=== PATIENT | male | born 1975 | race Hispanic/Latino ===

== ENCOUNTER 2020-08-21 12:08 | Emergency (ER) | payer OTHER ==
[2020-08-21] MEDS ORDERED: Boostrix 0.5 ML (Tdap) VIAL ONE (13:28)
[2020-08-21] MEDS ORDERED: Ibuprofen 800 MG TAB ONE (13:28)
[2020-08-21] MEDS ORDERED: Lidocaine 1.5%/Epinephrine 1:200,000 5 ML AMPUL IJ SCH (14:15)
[2020-08-21] MEDS ORDERED: Bacitracin 1 PK ONE (15:43)
== END 2020-08-21 15:54 | disposition home or self-care (01) ==
LOC: ERS 12:08
DX: S51.852A Open bite of left forearm, initial encounter (principal); S51.851A Open bite of right forearm, initial encounter; W54.0XXA Bitten by dog, initial encounter
CPT/HCPCS: 12002; 12032; 90471; 90715; J3490

== ENCOUNTER 2020-09-23 12:46 | Inpatient (IN) | payer SELFPAY ==
[~2020-09-23 12:46] MED LIST: Iopamidol-370 76% 500 ML 1 ML ONE; Magnevist 469MG/ML 20 ML VIAL ONE; Succinylcholine 200 MG/10 ml SYRINGE FS ONE
[2020-09-23 13:10] LABS: #Lymphocytes 1.1 thou/uL (1.20-3.40); #Monocytes 0.7 thou/uL (0.11-0.59); #Neutrophils 16.4 thou/uL (1.40-6.50); %Basophils 0.2 % (0.0-1.0); %Eosinophils 0.3 % (0.0-10.0); %Lymphocytes 5.8 % (21.0-51.0); %Monocytes 3.6 % (0.0-10.0); %Neutrophils 90.3 % (42.0-75.0); Hemoglobin 14.8 g/dL (14.0-18.0); Mean Corpuscular HGB CONC 33.9 g/dL (32.0-36.0); Mean Corpuscular Hemoglobin 29.8 pg (27.0-31.0); Mean Platelet Volume 7.6 fL (7.4-10.4); Platelet Count 477 thou/uL (130-400); RBC Distribution Width 11.9 % (11.5-14.5); Red Blood Cell (RBC) Count 4.96 mill/uL (4.70-6.10); White Blood Cell (WBC) Count 18.2 thou/uL (4.8-10.8)
[2020-09-23] MEDS ORDERED: cefTRIAXone\\ROCEPHIN 2 GM VIAL ONE (13:29)
[2020-09-23] MEDS ORDERED: Magnesium 2 GM/50 ML BAG (IN WATER) ONE (13:29)
[2020-09-23] MEDS ORDERED: Azithromycin 500 MG VIAL ONE (13:29)
[2020-09-23] MEDS ORDERED: Dexamethasone 10 MG/ML VIAL ONE (13:29)
[2020-09-23 13:30] LABS: ALT (SGPT) 68 U/L (8-55); AST (SGOT) 37 U/L (5-34); Albumin 3.4 g/dL (3.5-5.0); Alkaline Phosphatase 174 U/L (40-110); Anion Gap 16 mmol/L (10-20); BUN (Urea Nitrogen) 14 mg/dL (8.9-20.6); Bilirubin, Total 0.8 mg/dL (0.2-1.2); Calc. Creatinine Clearance 0 mL/min (70-130); Calcium 8.5 mg/dL (7.8-10.44); Carbon Dioxide 22 mmol/L (22-29); Chloride 105 mmol/L (98-107); Globulin 3.8 g/dL (2.4-3.5); Glucose 160 mg/dL (70-105); Lipase 15 U/L (8-78); Potassium 3.3 mmol/L (3.5-5.1); Protein, Total 7.2 g/dL (6.0-8.3); Sodium 140 mmol/L (136-145)
[2020-09-23 13:52] LABS: CKMB 2.1 ng/mL (0-6.6)
[2020-09-23 14:16] LABS: SARS-CoV-2 NAA Rapid Test DETECTED (NotDetected)
[2020-09-23 16:28] LABS: Lactic Acid 1.3 mmol/L (0.5-2.2)
[2020-09-23 17:07] LABS: INR-International Normal Ratio 1.3; PTT 26.2 sec (22.9-36.1); Prothrombin Time 16.4 sec (12.0-14.7)
[2020-09-23] MEDS ORDERED: Docusate 100 MG CAP PO PRN (17:34)
[2020-09-23] MEDS ORDERED: Aspirin 325 MG TAB ONE (17:35)
[2020-09-23 18:37] LABS: Troponin I 0.261 ng/mL (< 0.028)
[2020-09-23 20:12] LABS: Bilirubin Negative (Negative); Blood, Urine Negative (Negative); Clarity Clear (Clear); Glucose, Urine (Dipstick) 30 mg/dL (Negative); Ketone, Urine Negative (Negative); Leukocyte Negative Leu/uL (Negative); Mucous/LPF 1+ LPF (<2+); Nitrite Negative (Negative); Protein, Urine (Dipstick) 30 mg/dL (Neg-Trace); RBC/HPF 0-3 HPF (0-3); Specific Gravity, Urine 1.047 (1.002-1.036); Squamous Epithelial None Seen HPF (0-3); WBC/HPF 0-3 HPF (0-3)
[2020-09-23 20:25] LABS: Bacteria/HPF 2+ HPF (None Seen)
[2020-09-23 21:56] LABS: Troponin I 0.228 ng/mL (< 0.028)
[2020-09-24] MEDS: Labetalol HCl 100 MG/20 ML VIAL SLOW IVP PRN ×3 (01:38→19:08)
[2020-09-24] MEDS: Sodium Chloride 0.9% 1,000 ML IV SCH ×3 (01:38→20:47)
[2020-09-24] MEDS ORDERED: REMDESIVIR (EUA) 200 MG in Sodium Chloride 0.9% 250 ML 210 ML IV SCH (02:00)
[2020-09-24] MEDS: Enoxaparin Sodium 40 MG/0.4 ML SYRINGE SC SCH ×3 (02:19→20:46)
[2020-09-24 03:43] LABS: #Monocytes 0.7 thou/uL (0.11-0.59); #Neutrophils 13.2 thou/uL (1.40-6.50); %Basophils 0.1 % (0.0-1.0); %Eosinophils 0.2 % (0.0-10.0); %Lymphocytes 6.6 % (21.0-51.0); %Monocytes 4.4 % (0.0-10.0); %Neutrophils 88.8 % (42.0-75.0); Mean Corpuscular HGB CONC 33.1 g/dL (32.0-36.0); Mean Corpuscular Hemoglobin 29.5 pg (27.0-31.0); Mean Corpuscular Volume 89.3 fL (78.0-98.0); Platelet Count 394 thou/uL (130-400); Red Blood Cell (RBC) Count 4.41 mill/uL (4.70-6.10); White Blood Cell (WBC) Count 14.9 thou/uL (4.8-10.8)
[2020-09-24 04:05] LABS: Anion Gap 17 mmol/L (10-20); BUN (Urea Nitrogen) 18 mg/dL (8.9-20.6); Calc. Creatinine Clearance 144 mL/min (70-130); Carbon Dioxide 18 mmol/L (22-29); Cardiac Risk 8.1 (Less than 4.5); Chloride 110 mmol/L (98-107); Cholesterol 154 mg/dl (< 200 Desired); Glucose 164 mg/dL (70-105); HDL Cholesterol 19 mg/dL (>60 Neg Risk); LDL Cholesterol, Calculated 107 mg/dL; Potassium 3.8 mmol/L (3.5-5.1); Sodium 141 mmol/L (136-145); Triglycerides 138 mg/dL (Less than 150)
[2020-09-24 04:10] LABS: ALT (SGPT) 49 U/L (8-55); AST (SGOT) 29 U/L (5-34); Alkaline Phosphatase 137 U/L (40-110); Bilirubin, Direct 0.3 mg/dL (0.1-0.3); Bilirubin, Total 0.5 mg/dL (0.2-1.2); CRP (Inflammatory) 23.05 mg/dL (= or < 0.5); Protein, Total 6.2 g/dL (6.0-8.3)
[2020-09-24] MEDS: hydrALAZINE 20 MG/ML VIAL SLOW IVP PRN (06:07)
[2020-09-24] MEDS ORDERED: Pantoprazole 40 MG GRANULES PACKET PO SCH (09:00)
[2020-09-24] MEDS: Zinc Sulfate 220 MG CAP PO SCH (10:03)
[2020-09-24] MEDS: Ascorbic Acid 500 mg Chewable Tablet PO SCH (10:03)
[2020-09-24] MEDS: Cholecalciferol (Vitamin D3) 400 UNITS TAB PO SCH (10:03)
[2020-09-24] MEDS: cefTRIAXone\\ROCEPHIN 1 GM in Sodium Chloride 0.9% 100 ML IVPB SCH (15:52)
[2020-09-24] MEDS: Dexamethasone 10 MG in Sodium Chloride 0.9% 50 ML IVPB SCH (17:38)
[2020-09-24] MEDS: Azithromycin 500 MG in Sodium Chloride 0.9% 250 ML 250 ML IVPB SCH (17:38)
[2020-09-24] MEDS: Acetaminophen 325 MG TAB PO PRN (19:27)
[2020-09-24] MEDS: Atorvastatin Calcium 40 MG TAB PO SCH (20:47)
[2020-09-24] MEDS ORDERED: Lorazepam 2 MG/ML VIAL SLOW IVP SCH (21:45)
[2020-09-24 23:07] LABS: Actual Bicarbonate (HCO3a) 16.7 mEq/L (22-28); Base Excess (BEa) -6.4 mEq/L (-2.0 to +3.0); CO2 Tension 26.9 mmHg (35.0-45.0); Calcium, Ionized (arterial) 1.16 mmol/L (1.12-1.30); Carboxyhemoglobin (COHb) 0.4 gm% (0.0-3.0); Hemoglobin (Hb) 12.7 g/dL (14.0-18.0); O2 Tension (PaO2), arterial 73.6 mmHg (80.0-100.0); pH, Arterial 7.41 (7.35-7.45)
[2020-09-24 23:09] LABS: Puncture Site LRA
[2020-09-24 23:10] LABS: ALV-art Gradient 484.565 mmHg (0-20)
[2020-09-25] MEDS: hydrALAZINE 20 MG/ML VIAL SLOW IVP PRN (00:33)
[2020-09-25] MEDS: REMDESIVIR (EUA) 100 MG in Sodium Chloride 0.9% 250 ML 230 ML IV SCH (03:05)
[2020-09-25 04:02] LABS: Band 1 % (5-11); Hemoglobin 12.4 g/dL (14.0-18.0); Hypochromia SLIGHT = 6-15 cells (100X) (0-5/hpf); Lymphocytes 5 % (21-51); MDiff Complete? YES; Mean Corpuscular HGB CONC 33.6 g/dL (32.0-36.0); Mean Corpuscular Hemoglobin 29.9 pg (27.0-31.0); Mean Corpuscular Volume 88.9 fL (78.0-98.0); Monocytes 5 % (0-10); Neutrophil 89 % (42-75); Platelet Count 334 thou/uL (130-400); Platelet Morphology Comment Appears Adequate; Red Blood Cell (RBC) Count 4.14 mill/uL (4.70-6.10); White Blood Cell (WBC) Count 19.9 thou/uL (4.8-10.8)
[2020-09-25 08:24] LABS: Anion Gap 15 mmol/L (10-20); BUN (Urea Nitrogen) 20 mg/dL (8.9-20.6); Calc. Creatinine Clearance 167 mL/min (70-130); Calcium 7.8 mg/dL (7.8-10.44); Carbon Dioxide 16 mmol/L (22-29); Chloride 111 mmol/L (98-107); Glucose 141 mg/dL (70-105); Potassium 3.8 mmol/L (3.5-5.1); Sodium 138 mmol/L (136-145)
[2020-09-25] MEDS ORDERED: Diazepam 5 MG TAB PO PRN (08:29)
[2020-09-25] MEDS ORDERED: Diazepam 5 MG TAB PO SCH (08:30)
[2020-09-25] MEDS ORDERED: Thiamine HCl 200 MG/2 ML VIAL IM SCH (08:30)
[2020-09-25 08:45] LABS: Syphilis Antibody Nonreactive (Nonreactive); Syphilis Antibody Index 0.04 S/CO (<1.00 Non-Reactive)
[2020-09-25] MEDS: Dexamethasone 10 MG in Sodium Chloride 0.9% 50 ML IVPB SCH (10:00)
[2020-09-25] MEDS: Sodium Chloride 0.9% 1,000 ML IV SCH (10:11)
[2020-09-25] MEDS: Cholecalciferol (Vitamin D3) 400 UNITS TAB PO SCH (10:23)
[2020-09-25] MEDS: Ascorbic Acid 500 mg Chewable Tablet PO SCH (10:23)
[2020-09-25] MEDS: Zinc Sulfate 220 MG CAP PO SCH (10:24)
[2020-09-25] MEDS: Multivitamin W/ Minerals 1 TAB PO SCH (10:24)
[2020-09-25] MEDS: Folic Acid 1 MG TAB PO SCH (10:24)
[2020-09-25] MEDS: Enoxaparin Sodium 40 MG/0.4 ML SYRINGE SC SCH ×2 (10:25→20:31)
[2020-09-25] MEDS ORDERED: Sodium Bicarb 50 MEQ/50 ML Abboject 8.4% SYRINGE ONE (10:54)
[2020-09-25] MEDS ORDERED: Calcium Chloride 1 GM/10 ML Abboject SYRINGE ONE (10:54)
[2020-09-25] MEDS ORDERED: EPINEPHrine 1 MG/10 ML Abboject SYRINGE ONE (10:54)
[2020-09-25] MEDS ORDERED: Sodium Chloride 0.65% Nasal 44 ML BOT EA NARE PRN (10:59)
[2020-09-25] MEDS: cefTRIAXone\\ROCEPHIN 1 GM in Sodium Chloride 0.9% 100 ML IVPB SCH (12:01)
[2020-09-25] MEDS: Sodium Chloride 0.65% Nasal 44 ML BOT EA NARE SCH ×3 (12:02→20:32)
[2020-09-25] MEDS ORDERED: Lorazepam 2 MG/ML VIAL ONE (12:03)
[2020-09-25 12:31] LABS: Sodium 141 mmol/L (136-145)
[2020-09-25] MEDS ORDERED: Lorazepam 2 MG/ML VIAL SLOW IVP PRN (12:42)
[2020-09-25] MEDS ORDERED: Vecuronium 10 MG VIAL ONE ×2 (14:44→15:38)
[2020-09-25] MEDS ORDERED: Propofol 1,000 MG/100 ML VIAL IV ONE (14:44)
[2020-09-25] MEDS ORDERED: PROPOFOL 20 ML ONE (14:44)
[2020-09-25 15:27] LABS: Actual Bicarbonate (HCO3a) 19.3 mEq/L (22-28); Base Excess (BEa) -9.8 mEq/L (-2.0 to +3.0); CO2 Tension 55.6 mmHg (35.0-45.0); Calcium, Ionized (arterial) 1.36 mmol/L (1.12-1.30); Carboxyhemoglobin (COHb) 0.4 gm% (0.0-3.0); Hemoglobin (Hb) 13.4 g/dL (14.0-18.0); O2 Tension (PaO2), arterial 72.4 mmHg (80.0-100.0)
[2020-09-25] MEDS ORDERED: Fentanyl CADD 100 ML ONE (15:29)
[2020-09-25 15:30] LABS: pH, Arterial 7.16 (7.35-7.45)
[2020-09-25] MEDS ORDERED: Ventilator Sedation Protocol 1 EACH FS SCH (15:30)
[2020-09-25 15:31] LABS: Puncture Site RRA
[2020-09-25] MEDS: Azithromycin 500 MG in Sodium Chloride 0.9% 250 ML 250 ML IVPB SCH (15:32)
[2020-09-25] MEDS ORDERED: Electrolyte Replacement Protocol FS SCH (15:44)
[2020-09-25] MEDS ORDERED: DISCONTINUE PREVIOUS NARCOTIC PAIN MEDICATIONS AND BENZODIAZEPINES FS SCH (15:45)
[2020-09-25] MEDS ORDERED: Propofol BOLUS 1,000 MG/100 ML VIAL IV PRN (15:45)
[2020-09-25] MEDS ORDERED: Fentanyl BOLUS 250 ML IVPB PRN (15:45)
[2020-09-25 18:52] LABS: Bacteria/HPF None Seen HPF (None Seen); Bilirubin Negative (Negative); Blood, Urine 3+ (Negative); Clarity Turbid (Clear); Glucose, Urine (Dipstick) 100 mg/dL (Negative); Ketone, Urine Negative (Negative); Leukocyte Negative Leu/uL (Negative); Nitrite Negative (Negative); Protein, Urine (Dipstick) 300 mg/dL (Neg-Trace); RBC/HPF Greater than 50 HPF (0-3); Specific Gravity, Urine 1.032 (1.002-1.036); Squamous Epithelial 0-3 HPF (0-3)
[2020-09-25 18:59] LABS: Sperm/HPF 1+ HPF (None Seen)
[2020-09-25 19:00] LABS: Amphetamine Not Detected (NotDetected); Barbiturates Screen Not Detected (NotDetected); Benzodiazepine Screen Detected (NotDetected); Cocaine Metabolite Screen Not Detected (NotDetected); Medtox Control Line Valid? VALID (VALID); Medtox Reader # READER 1; Methadone Not Detected (NotDetected); Methamphetamine Not Detected (NotDetected); Opiate Screen Not Detected (NotDetected); Oxycodone Screen Not Detected (NotDetected); Phencyclidine (PCP) Not Detected (NotDetected); THC/Cannabinoid Screen Not Detected (NotDetected); Tricyclic Screen Not Detected (NotDetected); Urine Culture Reflex Yes Yes
[2020-09-25 19:08] LABS: Sodium 138 mmol/L (136-145)
[2020-09-25] MEDS: Atorvastatin Calcium 40 MG TAB PO SCH (20:31)
[2020-09-25] MEDS: Colchicine 0.6 MG TAB PO SCH (20:31)
[2020-09-25] MEDS ORDERED: Sterile Water 10 ML ONE (20:47)
[2020-09-25] MEDS: Vecuronium 10 MG VIAL IVP PRN ×2 (20:56→22:08)
[2020-09-25] MEDS: Lorazepam 2 MG/ML VIAL SLOW IVP PRN (22:08)
[2020-09-26] MEDS: Vecuronium 10 MG VIAL IVP PRN ×11 (00:13→21:00)
[2020-09-26 00:27] LABS: Sodium 140 mmol/L (136-145)
[2020-09-26] MEDS: Sodium Chloride 0.9% 1,000 ML IV SCH ×2 (02:56→16:56)
[2020-09-26 03:42] LABS: #Lymphocytes 0.9 thou/uL (1.20-3.40); #Monocytes 0.7 thou/uL (0.11-0.59); %Basophils 0.2 % (0.0-1.0); %Eosinophils 0.1 % (0.0-10.0); %Lymphocytes 5.8 % (21.0-51.0); %Monocytes 4.5 % (0.0-10.0); %Neutrophils 89.5 % (42.0-75.0); Hemoglobin 11.1 g/dL (14.0-18.0); Mean Corpuscular HGB CONC 32.6 g/dL (32.0-36.0); Mean Corpuscular Hemoglobin 29.7 pg (27.0-31.0); Mean Corpuscular Volume 91.1 fL (78.0-98.0); Mean Platelet Volume 8.5 fL (7.4-10.4); Platelet Count 260 thou/uL (130-400); RBC Distribution Width 12.2 % (11.5-14.5); Red Blood Cell (RBC) Count 3.72 mill/uL (4.70-6.10); White Blood Cell (WBC) Count 15.7 thou/uL (4.8-10.8)
[2020-09-26] MEDS: REMDESIVIR (EUA) 100 MG in Sodium Chloride 0.9% 250 ML 230 ML IV SCH (03:43)
[2020-09-26] MEDS ORDERED: Diazepam 5 MG TAB PO PRN (04:00)
[2020-09-26 04:03] LABS: Anion Gap 11 mmol/L (10-20); BUN (Urea Nitrogen) 34 mg/dL (8.9-20.6); CRP (Inflammatory) 21.47 mg/dL (= or < 0.5); Calc. Creatinine Clearance 141 mL/min (70-130); Calcium 7.9 mg/dL (7.8-10.44); Carbon Dioxide 22 mmol/L (22-29); Chloride 110 mmol/L (98-107); Glucose 179 mg/dL (70-105); Potassium 5.3 mmol/L (3.5-5.1); Sodium 138 mmol/L (136-145)
[2020-09-26] MEDS ORDERED: Fentanyl CADD 100 ML ONE ×2 (06:16→19:24)
[2020-09-26] MEDS: Fentanyl CADD 100 ML IV SCH ×2 (06:19→19:32)
[2020-09-26 07:22] LABS: Actual Bicarbonate (HCO3a) 22.4 mEq/L (22-28); Base Excess (BEa) -3.5 mEq/L (-2.0 to +3.0); CO2 Tension 43.7 mmHg (35.0-45.0); Carboxyhemoglobin (COHb) 0.2 gm% (0.0-3.0); O2 Tension (PaO2), arterial 64.8 mmHg (80.0-100.0); Potassium - ABG Lab 4.73 mmol/L (3.70-5.30); pH, Arterial 7.33 (7.35-7.45)
[2020-09-26 07:23] LABS: Sodium 141 mmol/L (136-145)
[2020-09-26 07:36] LABS: Puncture Site RRA
[2020-09-26 07:37] LABS: ALV-art Gradient 308.375 mmHg (0-20)
[2020-09-26] MEDS: Propofol 1,000 MG/100 ML VIAL IV PRN (08:40)
[2020-09-26] MEDS: Thiamine 100 MG TAB PO SCH (08:41)
[2020-09-26] MEDS: Folic Acid 1 MG TAB PO SCH (08:41)
[2020-09-26] MEDS: Magnesium Oxide 400 MG TAB PO SCH (08:41)
[2020-09-26] MEDS: Ascorbic Acid 500 mg Chewable Tablet PO SCH (08:42)
[2020-09-26] MEDS: Multivitamin W/ Minerals 1 TAB PO SCH (08:42)
[2020-09-26] MEDS: Zinc Sulfate 220 MG CAP PO SCH (08:42)
[2020-09-26] MEDS: Cholecalciferol (Vitamin D3) 400 UNITS TAB PO SCH (08:53)
[2020-09-26] MEDS ORDERED: Enoxaparin Sodium 40 MG/0.4 ML SYRINGE ONE (08:54)
[2020-09-26] MEDS: Colchicine 0.6 MG TAB PO SCH ×2 (08:55→21:00)
[2020-09-26] MEDS: Enoxaparin Sodium 40 MG/0.4 ML SYRINGE SC SCH ×2 (08:55→21:00)
[2020-09-26] MEDS: Sodium Chloride 0.65% Nasal 44 ML BOT EA NARE SCH ×4 (08:56→22:25)
[2020-09-26] MEDS: Pantoprazole 40 MG VIAL IVP SCH (08:56)
[2020-09-26] MEDS: Lorazepam 2 MG/ML VIAL SLOW IVP PRN ×4 (11:21→21:01)
[2020-09-26] MEDS: Labetalol HCl 100 MG/20 ML VIAL SLOW IVP PRN (11:35)
[2020-09-26] MEDS: Dexamethasone 10 MG in Sodium Chloride 0.9% 50 ML IVPB SCH (12:09)
[2020-09-26 12:57] LABS: Sodium 142 mmol/L (136-145)
[2020-09-26] MEDS: Azithromycin 500 MG in Sodium Chloride 0.9% 250 ML 250 ML IVPB SCH (14:28)
[2020-09-26] MEDS: cefTRIAXone\\ROCEPHIN 1 GM in Sodium Chloride 0.9% 100 ML IVPB SCH (14:28)
[2020-09-26] MEDS: Multivitamins, Adult 10 ML, Folic Acid 1 MG, Thiamine HCl 100 MG in Dextrose 5 %-0.45 %... IV SCH ×2 (14:31→19:13)
[2020-09-26 18:22] LABS: Sodium 142 mmol/L (136-145)
[2020-09-26] MEDS: Atorvastatin Calcium 40 MG TAB PO SCH (21:00)
[2020-09-27] MEDS: Lorazepam 2 MG/ML VIAL SLOW IVP PRN ×4 (00:04→20:44)
[2020-09-27] MEDS: Vecuronium 10 MG VIAL IVP PRN ×8 (00:04→20:24)
[2020-09-27] MEDS: REMDESIVIR (EUA) 100 MG in Sodium Chloride 0.9% 250 ML 230 ML IV SCH (02:36)
[2020-09-27] MEDS: Sodium Chloride 0.9% 1,000 ML IV SCH ×2 (02:42→15:08)
[2020-09-27 03:59] LABS: #Basophils 0.1 thou/uL (0.0-0.2); #Lymphocytes 0.7 thou/uL (1.20-3.40); #Monocytes 0.9 thou/uL (0.11-0.59); #Neutrophils 14.4 thou/uL (1.40-6.50); %Basophils 0.4 % (0.0-1.0); %Lymphocytes 4.5 % (21.0-51.0); %Monocytes 5.7 % (0.0-10.0); %Neutrophils 89.4 % (42.0-75.0); Hemoglobin 10.1 g/dL (14.0-18.0); Mean Corpuscular HGB CONC 31.7 g/dL (32.0-36.0); Mean Corpuscular Hemoglobin 29.2 pg (27.0-31.0); Mean Platelet Volume 9.2 fL (7.4-10.4); Platelet Count 246 thou/uL (130-400); RBC Distribution Width 12.4 % (11.5-14.5); Red Blood Cell (RBC) Count 3.47 mill/uL (4.70-6.10); White Blood Cell (WBC) Count 16.1 thou/uL (4.8-10.8)
[2020-09-27 04:18] LABS: Anion Gap 11 mmol/L (10-20); BUN (Urea Nitrogen) 31 mg/dL (8.9-20.6); Calc. Creatinine Clearance 141 mL/min (70-130); Calcium 7.3 mg/dL (7.8-10.44); Carbon Dioxide 24 mmol/L (22-29); Chloride 110 mmol/L (98-107); Glucose 234 mg/dL (70-105); Potassium 4.9 mmol/L (3.5-5.1); Sodium 140 mmol/L (136-145)
[2020-09-27 07:55] LABS: Actual Bicarbonate (HCO3a) 22.3 mEq/L (22-28); Base Excess (BEa) -1.1 mEq/L (-2.0 to +3.0); Calcium, Ionized (arterial) 1.14 mmol/L (1.12-1.30); Carboxyhemoglobin (COHb) 0.3 gm% (0.0-3.0); O2 Tension (PaO2), arterial 124.6 mmHg (80.0-100.0); Potassium - ABG Lab 4.72 mmol/L (3.70-5.30); pH, Arterial 7.45 (7.35-7.45)
[2020-09-27 07:58] LABS: Puncture Site RRA
[2020-09-27] MEDS: Magnesium Oxide 400 MG TAB PO SCH (08:11)
[2020-09-27] MEDS: Cholecalciferol (Vitamin D3) 400 UNITS TAB PO SCH (08:11)
[2020-09-27] MEDS: Ascorbic Acid 500 mg Chewable Tablet PO SCH (08:11)
[2020-09-27] MEDS: Multivitamin W/ Minerals 1 TAB PO SCH (08:11)
[2020-09-27] MEDS: Folic Acid 1 MG TAB PO SCH (08:11)
[2020-09-27] MEDS: Thiamine 100 MG TAB PO SCH (08:11)
[2020-09-27] MEDS: Zinc Sulfate 220 MG CAP PO SCH (08:11)
[2020-09-27] MEDS: Colchicine 0.6 MG TAB PO SCH ×2 (08:11→20:08)
[2020-09-27] MEDS: Pantoprazole 40 MG VIAL IVP SCH (08:12)
[2020-09-27] MEDS: Enoxaparin Sodium 40 MG/0.4 ML SYRINGE SC SCH ×2 (08:12→20:08)
[2020-09-27] MEDS: Dexamethasone 10 MG in Sodium Chloride 0.9% 50 ML IVPB SCH (08:29)
[2020-09-27] MEDS ORDERED: Fentanyl CADD 100 ML ONE ×2 (08:49→20:43)
[2020-09-27] MEDS: Fentanyl CADD 100 ML IV SCH ×2 (08:51→20:44)
[2020-09-27] MEDS: cefTRIAXone\\ROCEPHIN 1 GM in Sodium Chloride 0.9% 100 ML IVPB SCH (12:09)
[2020-09-27] MEDS: Azithromycin 500 MG in Sodium Chloride 0.9% 250 ML 250 ML IVPB SCH (13:03)
[2020-09-27] MEDS: Propofol 1,000 MG/100 ML VIAL IV PRN (15:13)
[2020-09-27] MEDS: Multivitamins, Adult 10 ML, Folic Acid 1 MG, Thiamine HCl 100 MG in Dextrose 5 %-0.45 %... IV SCH (16:37)
[2020-09-27] MEDS: Atorvastatin Calcium 40 MG TAB PO SCH (20:08)
[2020-09-28] MEDS: REMDESIVIR (EUA) 100 MG in Sodium Chloride 0.9% 250 ML 230 ML IV SCH (02:59)
[2020-09-28 03:48] LABS: #Lymphocytes 0.9 thou/uL (1.20-3.40); #Neutrophils 9.8 thou/uL (1.40-6.50); %Eosinophils 0.1 % (0.0-10.0); %Lymphocytes 7.8 % (21.0-51.0); %Monocytes 8.8 % (0.0-10.0); %Neutrophils 83.3 % (42.0-75.0); Hemoglobin 9.9 g/dL (14.0-18.0); Mean Corpuscular HGB CONC 31.9 g/dL (32.0-36.0); Mean Corpuscular Hemoglobin 29.4 pg (27.0-31.0); Mean Corpuscular Volume 92.2 fL (78.0-98.0); Mean Platelet Volume 9.9 fL (7.4-10.4); Platelet Count 244 thou/uL (130-400); RBC Distribution Width 12.3 % (11.5-14.5); Red Blood Cell (RBC) Count 3.37 mill/uL (4.70-6.10); White Blood Cell (WBC) Count 11.7 thou/uL (4.8-10.8)
[2020-09-28 04:08] LABS: Anion Gap 11 mmol/L (10-20); BUN (Urea Nitrogen) 33 mg/dL (8.9-20.6); CRP (Inflammatory) 9.28 mg/dL (= or < 0.5); Calc. Creatinine Clearance 146 mL/min (70-130); Calcium 7.3 mg/dL (7.8-10.44); Carbon Dioxide 23 mmol/L (22-29); Chloride 110 mmol/L (98-107); Glucose 259 mg/dL (70-105); Potassium 4.7 mmol/L (3.5-5.1); Sodium 139 mmol/L (136-145)
[2020-09-28] MEDS: Magnesium Oxide 400 MG TAB PO SCH (07:43)
[2020-09-28] MEDS: Multivitamin W/ Minerals 1 TAB PO SCH (07:43)
[2020-09-28] MEDS: Ascorbic Acid 500 mg Chewable Tablet PO SCH (07:44)
[2020-09-28] MEDS: Cholecalciferol (Vitamin D3) 400 UNITS TAB PO SCH (07:44)
[2020-09-28] MEDS: Enoxaparin Sodium 40 MG/0.4 ML SYRINGE SC SCH ×2 (07:44→21:02)
[2020-09-28] MEDS: Zinc Sulfate 220 MG CAP PO SCH (07:44)
[2020-09-28] MEDS: Folic Acid 1 MG TAB PO SCH (07:44)
[2020-09-28] MEDS: Thiamine 100 MG TAB PO SCH (07:44)
[2020-09-28] MEDS: Colchicine 0.6 MG TAB PO SCH ×2 (07:44→21:02)
[2020-09-28] MEDS: Pantoprazole 40 MG GRANULES PACKET PER TUBE SCH (07:44)
[2020-09-28] MEDS: Sodium Chloride 0.9% 1,000 ML IV SCH ×2 (07:45→17:45)
[2020-09-28 08:04] LABS: Actual Bicarbonate (HCO3a) 23.6 mEq/L (22-28); Base Excess (BEa) -0.5 mEq/L (-2.0 to +3.0); CO2 Tension 36.9 mmHg (35.0-45.0); Calcium, Ionized (arterial) 1.16 mmol/L (1.12-1.30); Carboxyhemoglobin (COHb) 0.5 gm% (0.0-3.0); Hemoglobin (Hb) 11.6 g/dL (14.0-18.0); Potassium - ABG Lab 4.74 mmol/L (3.70-5.30); pH, Arterial 7.42 (7.35-7.45)
[2020-09-28 08:09] LABS: O2 Tension (PaO2), arterial 57.1 mmHg (80.0-100.0); Puncture Site RBA
[2020-09-28 08:10] LABS: ALV-art Gradient 181.975 mmHg (0-20)
[2020-09-28] MEDS ORDERED: Fentanyl CADD 100 ML ONE ×2 (08:13→18:35)
[2020-09-28] MEDS: Fentanyl CADD 100 ML IV SCH ×2 (08:16→19:04)
[2020-09-28] MEDS: Dexamethasone 10 MG in Sodium Chloride 0.9% 50 ML IVPB SCH (08:49)
[2020-09-28] MEDS: Vecuronium 10 MG VIAL IVP PRN ×2 (08:52→13:20)
[2020-09-28] MEDS: Lorazepam 2 MG/ML VIAL SLOW IVP PRN ×2 (10:25→13:49)
[2020-09-28] MEDS: cefTRIAXone\\ROCEPHIN 1 GM in Sodium Chloride 0.9% 100 ML IVPB SCH (12:06)
[2020-09-28] MEDS: Azithromycin 500 MG in Sodium Chloride 0.9% 250 ML 250 ML IVPB SCH (13:05)
[2020-09-28] MEDS: Atorvastatin Calcium 40 MG TAB PO SCH (21:02)
[2020-09-29] MEDS: Lorazepam 2 MG/ML VIAL SLOW IVP PRN ×2 (03:08→05:59)
[2020-09-29] MEDS: Vecuronium 10 MG VIAL IVP PRN ×3 (03:08→08:03)
[2020-09-29 04:47] LABS: Anion Gap 10 mmol/L (10-20); BUN (Urea Nitrogen) 34 mg/dL (8.9-20.6); Calc. Creatinine Clearance 161 mL/min (70-130); Calcium 7.5 mg/dL (7.8-10.44); Carbon Dioxide 27 mmol/L (22-29); Chloride 109 mmol/L (98-107); Glucose 164 mg/dL (70-105); Potassium 4.3 mmol/L (3.5-5.1); Sodium 142 mmol/L (136-145)
[2020-09-29] MEDS ORDERED: Fentanyl CADD 100 ML ONE ×2 (05:56→17:07)
[2020-09-29] MEDS: Propofol 1,000 MG/100 ML VIAL IV PRN (05:59)
[2020-09-29] MEDS: Sodium Chloride 0.9% 1,000 ML IV SCH ×2 (06:00→21:07)
[2020-09-29] MEDS: Multivitamin W/ Minerals 1 TAB PO SCH (08:02)
[2020-09-29] MEDS: Enoxaparin Sodium 40 MG/0.4 ML SYRINGE SC SCH ×2 (08:02→21:05)
[2020-09-29] MEDS: Pantoprazole 40 MG GRANULES PACKET PER TUBE SCH (08:02)
[2020-09-29] MEDS: Folic Acid 1 MG TAB PO SCH (08:02)
[2020-09-29] MEDS: Zinc Sulfate 220 MG CAP PO SCH (08:02)
[2020-09-29] MEDS: Colchicine 0.6 MG TAB PO SCH ×2 (08:02→21:05)
[2020-09-29] MEDS: Thiamine 100 MG TAB PO SCH (08:02)
[2020-09-29] MEDS: Magnesium Oxide 400 MG TAB PO SCH (08:02)
[2020-09-29] MEDS: Cholecalciferol (Vitamin D3) 400 UNITS TAB PO SCH (08:02)
[2020-09-29] MEDS: Dexamethasone 10 MG in Sodium Chloride 0.9% 50 ML IVPB SCH (08:02)
[2020-09-29] MEDS: Ascorbic Acid 500 mg Chewable Tablet PO SCH (08:02)
[2020-09-29] MEDS ORDERED: FLU VACC QS2020-21(6MOS UP)/PF 60 MCG/0.5 ML SYRINGE IM ONE (09:00)
[2020-09-29] MEDS: Acetaminophen 325 MG TAB PO PRN (14:38)
[2020-09-29] MEDS: Fentanyl CADD 100 ML IV SCH (17:19)
[2020-09-29] MEDS: Atorvastatin Calcium 40 MG TAB PO SCH (21:05)
[2020-09-30] MEDS: Vecuronium 10 MG VIAL IVP PRN ×6 (02:27→20:25)
[2020-09-30] MEDS: Lorazepam 2 MG/ML VIAL SLOW IVP PRN ×4 (02:27→20:25)
[2020-09-30 05:01] LABS: Anion Gap 12 mmol/L (10-20); BUN (Urea Nitrogen) 26 mg/dL (8.9-20.6); CRP (Inflammatory) 13.83 mg/dL (= or < 0.5); Calc. Creatinine Clearance 0 mL/min (70-130); Calcium 7.8 mg/dL (7.8-10.44); Carbon Dioxide 25 mmol/L (22-29); Chloride 104 mmol/L (98-107); Glucose 158 mg/dL (70-105); Potassium 4.6 mmol/L (3.5-5.1); Sodium 136 mmol/L (136-145)
[2020-09-30] MEDS ORDERED: Fentanyl CADD 100 ML ONE ×2 (06:10→17:13)
[2020-09-30] MEDS: Fentanyl CADD 100 ML IV SCH (06:12)
[2020-09-30 07:51] LABS: Actual Bicarbonate (HCO3a) 29.3 mEq/L (22-28); Base Excess (BEa) 0.6 mEq/L (-2.0 to +3.0); Calcium, Ionized (arterial) 1.17 mmol/L (1.12-1.30); Carboxyhemoglobin (COHb) 0.5 gm% (0.0-3.0); Hemoglobin (Hb) 12.1 g/dL (14.0-18.0); O2 Tension (PaO2), arterial 62.8 mmHg (80.0-100.0); Potassium - ABG Lab 4.74 mmol/L (3.70-5.30)
[2020-09-30] MEDS: Magnesium Oxide 400 MG TAB PO SCH (08:15)
[2020-09-30] MEDS: Pantoprazole 40 MG GRANULES PACKET PER TUBE SCH (08:15)
[2020-09-30] MEDS: Cholecalciferol (Vitamin D3) 400 UNITS TAB PO SCH (08:15)
[2020-09-30] MEDS: Enoxaparin Sodium 40 MG/0.4 ML SYRINGE SC SCH ×2 (08:15→20:24)
[2020-09-30] MEDS: Folic Acid 1 MG TAB PO SCH (08:16)
[2020-09-30] MEDS: Thiamine 100 MG TAB PO SCH (08:16)
[2020-09-30] MEDS: Multivitamin W/ Minerals 1 TAB PO SCH (08:16)
[2020-09-30] MEDS: Colchicine 0.6 MG TAB PO SCH ×2 (08:16→20:24)
[2020-09-30] MEDS: Zinc Sulfate 220 MG CAP PO SCH (08:16)
[2020-09-30] MEDS: Ascorbic Acid 500 mg Chewable Tablet PO SCH (08:16)
[2020-09-30] MEDS: Dexamethasone 10 MG in Sodium Chloride 0.9% 50 ML IVPB SCH (08:18)
[2020-09-30] MEDS: Sodium Chloride 0.9% 1,000 ML IV SCH (08:19)
[2020-09-30 08:40] LABS: CO2 Tension 68.3 mmHg (35.0-45.0); Puncture Site LRA; pH, Arterial 7.25 (7.35-7.45)
[2020-09-30 08:41] LABS: ALV-art Gradient 279.625 mmHg (0-20)
[2020-09-30] MEDS ORDERED: methylPREDNISolone Sod Succ 1 GM in Sodium Chloride 0.9% 250 ML 250 ML IVPB SCH (10:00)
[2020-09-30] MEDS: Sodium Bicarbonate 70 MEQ in Sodium Chloride 0.45% 1,000 ML IV SCH (11:31)
[2020-09-30] MEDS: methylPREDNISolone Sod Succ 1 GM in Sodium Chloride 0.9% 250 ML 250 ML IVPB SCH (11:31)
[2020-09-30] MEDS ORDERED: methylPREDNISolone Sod Succ 40 MG VIAL IVP SCH (12:00)
[2020-09-30] MEDS: Atorvastatin Calcium 40 MG TAB PO SCH (20:24)
[2020-09-30] MEDS ORDERED: Sterile Water 10 ML ONE (22:28)
[2020-10-01] MEDS: Sodium Chloride 0.9% 1,000 ML IV SCH ×2 (02:08→13:34)
[2020-10-01] MEDS: Sodium Bicarbonate 70 MEQ in Sodium Chloride 0.45% 1,000 ML IV SCH ×2 (02:52→15:43)
[2020-10-01] MEDS ORDERED: Fentanyl CADD 100 ML ONE ×2 (03:32→15:29)
[2020-10-01 07:59] LABS: Actual Bicarbonate (HCO3a) 28.3 mEq/L (22-28); Base Excess (BEa) 3.9 mEq/L (-2.0 to +3.0); CO2 Tension 41.8 mmHg (35.0-45.0); Calcium, Ionized (arterial) 1.11 mmol/L (1.12-1.30); Carboxyhemoglobin (COHb) 0.1 gm% (0.0-3.0); Hemoglobin (Hb) 11.1 g/dL (14.0-18.0); Potassium - ABG Lab 4.06 mmol/L (3.70-5.30); pH, Arterial 7.45 (7.35-7.45)
[2020-10-01] MEDS: Enoxaparin Sodium 40 MG/0.4 ML SYRINGE SC SCH ×2 (08:06→21:34)
[2020-10-01] MEDS: Colchicine 0.6 MG TAB PO SCH ×2 (08:06→21:34)
[2020-10-01] MEDS: Magnesium Oxide 400 MG TAB PO SCH (08:06)
[2020-10-01] MEDS: Zinc Sulfate 220 MG CAP PO SCH (08:06)
[2020-10-01] MEDS: Cholecalciferol (Vitamin D3) 400 UNITS TAB PO SCH (08:06)
[2020-10-01] MEDS: Thiamine 100 MG TAB PO SCH (08:07)
[2020-10-01] MEDS: Multivitamin W/ Minerals 1 TAB PO SCH (08:07)
[2020-10-01] MEDS: Pantoprazole 40 MG GRANULES PACKET PER TUBE SCH (08:07)
[2020-10-01] MEDS: Folic Acid 1 MG TAB PO SCH (08:07)
[2020-10-01] MEDS: Ascorbic Acid 500 mg Chewable Tablet PO SCH (08:07)
[2020-10-01 08:08] LABS: O2 Tension (PaO2), arterial 54.6 mmHg (80.0-100.0); Puncture Site RRA
[2020-10-01 08:47] LABS: Anion Gap 13 mmol/L (10-20); BUN (Urea Nitrogen) 24 mg/dL (8.9-20.6); Calc. Creatinine Clearance 182 mL/min (70-130); Calcium 7.7 mg/dL (7.8-10.44); Carbon Dioxide 27 mmol/L (22-29); Chloride 100 mmol/L (98-107); Glucose 248 mg/dL (70-105); Potassium 4.4 mmol/L (3.5-5.1); Sodium 136 mmol/L (136-145)
[2020-10-01 08:57] LABS: Band 8 % (5-11); Hemoglobin 10.4 g/dL (14.0-18.0); Lymphocytes 4 % (21-51); MDiff Complete? YES; Mean Corpuscular HGB CONC 32.5 g/dL (32.0-36.0); Mean Corpuscular Hemoglobin 29.8 pg (27.0-31.0); Mean Corpuscular Volume 91.6 fL (78.0-98.0); Mean Platelet Volume 10.6 fL (7.4-10.4); Monocytes 8 % (0-10); Neutrophil 80 % (42-75); Platelet Count 249 thou/uL (130-400); Red Blood Cell (RBC) Count 3.49 mill/uL (4.70-6.10); White Blood Cell (WBC) Count 13.8 thou/uL (4.8-10.8)
[2020-10-01] MEDS: Lorazepam 2 MG/ML VIAL SLOW IVP PRN ×4 (09:26→23:53)
[2020-10-01] MEDS: Vecuronium 10 MG VIAL IVP PRN ×3 (09:26→16:02)
[2020-10-01] MEDS: methylPREDNISolone Sod Succ 1 GM in Sodium Chloride 0.9% 250 ML 250 ML IVPB SCH (11:51)
[2020-10-01] MEDS: Atorvastatin Calcium 40 MG TAB PO SCH (21:34)
[2020-10-02] MEDS ORDERED: Fentanyl CADD 100 ML ONE ×3 (03:06→15:51)
[2020-10-02] MEDS: Lorazepam 2 MG/ML VIAL SLOW IVP PRN ×3 (05:25→11:11)
[2020-10-02] MEDS: Vecuronium 10 MG VIAL IVP PRN ×2 (06:18→11:10)
[2020-10-02] MEDS: Sodium Bicarbonate 70 MEQ in Sodium Chloride 0.45% 1,000 ML IV SCH ×2 (06:19→19:05)
[2020-10-02] MEDS: Sodium Chloride 0.9% 1,000 ML IV SCH ×2 (07:51→15:02)
[2020-10-02 07:52] LABS: Actual Bicarbonate (HCO3a) 29.2 mEq/L (22-28); Base Excess (BEa) 5.5 mEq/L (-2.0 to +3.0); Calcium, Ionized (arterial) 1.06 mmol/L (1.12-1.30); Carboxyhemoglobin (COHb) 0.3 gm% (0.0-3.0); Hemoglobin (Hb) 11.2 g/dL (14.0-18.0); O2 Tension (PaO2), arterial 62.3 mmHg (80.0-100.0); Potassium - ABG Lab 3.68 mmol/L (3.70-5.30); pH, Arterial 7.49 (7.35-7.45)
[2020-10-02 07:58] LABS: Puncture Site RRA
[2020-10-02] MEDS: Pantoprazole 40 MG GRANULES PACKET PER TUBE SCH (08:34)
[2020-10-02] MEDS: Aspirin Chewable 81 MG TAB PER TUBE SCH (08:34)
[2020-10-02] MEDS: Magnesium Oxide 400 MG TAB PO SCH (08:34)
[2020-10-02] MEDS: Ascorbic Acid 500 mg Chewable Tablet PO SCH (08:34)
[2020-10-02] MEDS: Multivitamin W/ Minerals 1 TAB PO SCH (08:34)
[2020-10-02] MEDS: Thiamine 100 MG TAB PO SCH (08:34)
[2020-10-02] MEDS: Zinc Sulfate 220 MG CAP PO SCH (08:34)
[2020-10-02] MEDS: Enoxaparin Sodium 40 MG/0.4 ML SYRINGE SC SCH ×2 (08:34→20:53)
[2020-10-02] MEDS: Colchicine 0.6 MG TAB PO SCH ×2 (08:35→20:53)
[2020-10-02] MEDS: Folic Acid 1 MG TAB PO SCH (08:35)
[2020-10-02] MEDS: Cholecalciferol (Vitamin D3) 400 UNITS TAB PO SCH (08:35)
[2020-10-02] MEDS: methylPREDNISolone Sod Succ 1 GM in Sodium Chloride 0.9% 250 ML 250 ML IVPB SCH (12:23)
[2020-10-02] MEDS: Fentanyl CADD 100 ML IV SCH (15:33)
[2020-10-02] MEDS ORDERED: Fentanyl 100 MCG/2 ML VIAL ONE (15:59)
[2020-10-02] MEDS: Atorvastatin Calcium 40 MG TAB PO SCH (20:53)
[2020-10-03] MEDS: Lorazepam 2 MG/ML VIAL SLOW IVP PRN (01:43)
[2020-10-03] MEDS: Vecuronium 10 MG VIAL IVP PRN (01:43)
[2020-10-03] MEDS ORDERED: Fentanyl CADD 100 ML ONE ×2 (03:30→15:30)
[2020-10-03] MEDS: Fentanyl CADD 100 ML IV SCH (03:36)
[2020-10-03] MEDS: Sodium Bicarbonate 70 MEQ in Sodium Chloride 0.45% 1,000 ML IV SCH (06:54)
[2020-10-03] MEDS: Sodium Chloride 0.9% 1,000 ML IV SCH ×2 (07:49→15:27)
[2020-10-03 08:07] LABS: #Neutrophils 10.3 thou/uL (1.40-6.50); %Basophils 0.4 % (0.0-1.0); %Eosinophils 0.1 % (0.0-10.0); %Monocytes 7.8 % (0.0-10.0); %Neutrophils 83.7 % (42.0-75.0); Hemoglobin 11.5 g/dL (14.0-18.0); Mean Corpuscular HGB CONC 32.7 g/dL (32.0-36.0); Mean Corpuscular Hemoglobin 29.3 pg (27.0-31.0); Mean Corpuscular Volume 89.5 fL (78.0-98.0); Mean Platelet Volume 9.8 fL (7.4-10.4); Platelet Count 261 thou/uL (130-400); RBC Distribution Width 12.3 % (11.5-14.5); Red Blood Cell (RBC) Count 3.92 mill/uL (4.70-6.10); White Blood Cell (WBC) Count 12.3 thou/uL (4.8-10.8)
[2020-10-03 08:25] LABS: Anion Gap 14 mmol/L (10-20); BUN (Urea Nitrogen) 19 mg/dL (8.9-20.6); Calc. Creatinine Clearance 210 mL/min (70-130); Calcium 7.4 mg/dL (7.8-10.44); Carbon Dioxide 22 mmol/L (22-29); Chloride 104 mmol/L (98-107); Glucose 149 mg/dL (70-105); Potassium 4.1 mmol/L (3.5-5.1); Sodium 136 mmol/L (136-145)
[2020-10-03] MEDS: Folic Acid 1 MG TAB PO SCH (08:35)
[2020-10-03] MEDS: Aspirin Chewable 81 MG TAB PER TUBE SCH (08:35)
[2020-10-03] MEDS: Thiamine 100 MG TAB PO SCH (08:35)
[2020-10-03] MEDS: Enoxaparin Sodium 40 MG/0.4 ML SYRINGE SC SCH ×2 (08:35→19:52)
[2020-10-03] MEDS: Colchicine 0.6 MG TAB PO SCH ×2 (08:35→19:52)
[2020-10-03] MEDS: Zinc Sulfate 220 MG CAP PO SCH (08:35)
[2020-10-03] MEDS: Magnesium Oxide 400 MG TAB PO SCH (08:35)
[2020-10-03] MEDS: Ascorbic Acid 500 mg Chewable Tablet PO SCH (08:35)
[2020-10-03] MEDS: Cholecalciferol (Vitamin D3) 400 UNITS TAB PO SCH (08:35)
[2020-10-03] MEDS: Pantoprazole 40 MG GRANULES PACKET PER TUBE SCH (08:36)
[2020-10-03] MEDS: Multivitamin W/ Minerals 1 TAB PO SCH (08:36)
[2020-10-03] MEDS ORDERED: SODIUM CHLORIDE 0.45% IVP SCH (09:00)
[2020-10-03] MEDS ORDERED: METHYLPREDNISOLONE SODIUM SUCC IVP SCH (09:00)
[2020-10-03] MEDS: Atorvastatin Calcium 40 MG TAB PO SCH (19:52)
[2020-10-03] MEDS: Lactated Ringer's 1,000 ML IV SCH (19:52)
[2020-10-03 20:25] LABS: Anion Gap 14 mmol/L (10-20); BUN (Urea Nitrogen) 20 mg/dL (8.9-20.6); Calc. Creatinine Clearance 174 mL/min (70-130); Calcium 7.2 mg/dL (7.8-10.44); Carbon Dioxide 25 mmol/L (22-29); Chloride 102 mmol/L (98-107); Glucose 253 mg/dL (70-105); Potassium 5.1 mmol/L (3.5-5.1); Sodium 136 mmol/L (136-145)
[2020-10-04] MEDS ORDERED: Fentanyl CADD 100 ML ONE ×2 (03:55→15:29)
[2020-10-04] MEDS: Lactated Ringer's 1,000 ML IV SCH (04:08)
[2020-10-04] MEDS: Fentanyl CADD 100 ML IV SCH ×2 (04:08→15:32)
[2020-10-04] MEDS: Lorazepam 2 MG/ML VIAL SLOW IVP PRN ×2 (04:28→21:49)
[2020-10-04 04:58] LABS: #Lymphocytes 0.5 thou/uL (1.20-3.40); #Monocytes 0.5 thou/uL (0.11-0.59); %Basophils 0.2 % (0.0-1.0); %Lymphocytes 2.8 % (21.0-51.0); %Monocytes 3.4 % (0.0-10.0); %Neutrophils 93.6 % (42.0-75.0); Hemoglobin 11.3 g/dL (14.0-18.0); Mean Corpuscular HGB CONC 33.5 g/dL (32.0-36.0); Mean Corpuscular Hemoglobin 29.8 pg (27.0-31.0); Mean Corpuscular Volume 88.7 fL (78.0-98.0); Mean Platelet Volume 10.9 fL (7.4-10.4); Platelet Count 250 thou/uL (130-400); RBC Distribution Width 12.4 % (11.5-14.5); Red Blood Cell (RBC) Count 3.81 mill/uL (4.70-6.10)
[2020-10-04] MEDS: SODIUM CHLORIDE 0.45% IVP SCH (06:05)
[2020-10-04] MEDS: METHYLPREDNISOLONE SODIUM SUCC IVP SCH (06:05)
[2020-10-04 07:20] LABS: Anion Gap 12 mmol/L (10-20); BUN (Urea Nitrogen) 20 mg/dL (8.9-20.6); CRP (Inflammatory) 3.47 mg/dL (= or < 0.5); Calc. Creatinine Clearance 194 mL/min (70-130); Calcium 7.3 mg/dL (7.8-10.44); Carbon Dioxide 26 mmol/L (22-29); Chloride 104 mmol/L (98-107); Glucose 219 mg/dL (70-105); Potassium 3.5 mmol/L (3.5-5.1); Sodium 138 mmol/L (136-145)
[2020-10-04] MEDS: Ascorbic Acid 500 mg Chewable Tablet PO SCH (08:26)
[2020-10-04] MEDS: Thiamine 100 MG TAB PO SCH (08:26)
[2020-10-04] MEDS: Folic Acid 1 MG TAB PO SCH (08:26)
[2020-10-04] MEDS: Magnesium Oxide 400 MG TAB PO SCH (08:26)
[2020-10-04] MEDS: Pantoprazole 40 MG GRANULES PACKET PER TUBE SCH (08:26)
[2020-10-04] MEDS: Colchicine 0.6 MG TAB PO SCH ×2 (08:26→20:19)
[2020-10-04] MEDS: Zinc Sulfate 220 MG CAP PO SCH (08:26)
[2020-10-04] MEDS: Multivitamin W/ Minerals 1 TAB PO SCH (08:26)
[2020-10-04] MEDS: Enoxaparin Sodium 40 MG/0.4 ML SYRINGE SC SCH ×2 (08:26→20:19)
[2020-10-04] MEDS: Aspirin Chewable 81 MG TAB PER TUBE SCH (08:27)
[2020-10-04] MEDS: Cholecalciferol (Vitamin D3) 400 UNITS TAB PO SCH (08:27)
[2020-10-04] MEDS: Potassium Chloride 20 MEQ in Premix Bag 1 BAG IVPB SCH ×2 (08:36→10:35)
[2020-10-04 08:43] LABS: Actual Bicarbonate (HCO3a) 25.1 mEq/L (22-28); Base Excess (BEa) 1.4 mEq/L (-2.0 to +3.0); CO2 Tension 36.8 mmHg (35.0-45.0); Carboxyhemoglobin (COHb) 0.7 gm% (0.0-3.0); Hemoglobin (Hb) 13.2 g/dL (14.0-18.0); O2 Tension (PaO2), arterial 60.3 mmHg (80.0-100.0); Potassium - ABG Lab 3.32 mmol/L (3.70-5.30); pH, Arterial 7.45 (7.35-7.45)
[2020-10-04 08:47] LABS: Puncture Site RRA
[2020-10-04] MEDS ORDERED: methylPREDNISolone Sod Succ 40 MG VIAL IVPB SCH (09:00)
[2020-10-04] MEDS: Furosemide 40 MG/4 ML VIAL SLOW IVP SCH ×2 (10:33→20:19)
[2020-10-04] MEDS: Atorvastatin Calcium 40 MG TAB PO SCH (20:19)
[2020-10-04] MEDS: Morphine 2 MG/ML VIAL SLOW IVP PRN (21:50)
[2020-10-05] MEDS ORDERED: Fentanyl CADD 100 ML ONE ×2 (01:22→14:13)
[2020-10-05] MEDS: Fentanyl CADD 100 ML IV SCH (02:07)
[2020-10-05] MEDS: Morphine 2 MG/ML VIAL SLOW IVP PRN (02:08)
[2020-10-05] MEDS: Lorazepam 2 MG/ML VIAL SLOW IVP PRN (02:08)
[2020-10-05] MEDS: SODIUM CHLORIDE 0.45% IVP SCH (03:58)
[2020-10-05] MEDS: METHYLPREDNISOLONE SODIUM SUCC IVP SCH (03:58)
[2020-10-05 04:55] LABS: Anion Gap 13 mmol/L (10-20); BUN (Urea Nitrogen) 21 mg/dL (8.9-20.6); Calc. Creatinine Clearance 173 mL/min (70-130); Calcium 7.9 mg/dL (7.8-10.44); Carbon Dioxide 28 mmol/L (22-29); Chloride 101 mmol/L (98-107); Glucose 214 mg/dL (70-105); Potassium 3.4 mmol/L (3.5-5.1); Sodium 139 mmol/L (136-145)
[2020-10-05] MEDS: Potassium Chloride 20 MEQ in Premix Bag 1 BAG IVPB SCH ×2 (05:57→08:06)
[2020-10-05 06:22] LABS: Band 12 % (5-11); Hemoglobin 11.9 g/dL (14.0-18.0); Lymphocytes 3 % (21-51); MDiff Complete? YES; Mean Corpuscular Hemoglobin 28.5 pg (27.0-31.0); Mean Corpuscular Volume 91.8 fL (78.0-98.0); Monocytes 2 % (0-10); Neutrophil 83 % (42-75); Platelet Count 302 thou/uL (130-400); RBC Distribution Width 12.5 % (11.5-14.5); Red Blood Cell (RBC) Count 4.16 mill/uL (4.70-6.10); White Blood Cell (WBC) Count 25.1 thou/uL (4.8-10.8)
[2020-10-05] MEDS ORDERED: Potassium Bicarbonate/Cit Ac 20 MEQ TAB PER TUBE SCH (08:00)
[2020-10-05] MEDS: Zinc Sulfate 220 MG CAP PO SCH (08:04)
[2020-10-05] MEDS: Magnesium Oxide 400 MG TAB PO SCH (08:04)
[2020-10-05] MEDS: Multivitamin W/ Minerals 1 TAB PO SCH (08:04)
[2020-10-05] MEDS: Ascorbic Acid 500 mg Chewable Tablet PO SCH (08:04)
[2020-10-05] MEDS: Folic Acid 1 MG TAB PO SCH (08:04)
[2020-10-05] MEDS: Colchicine 0.6 MG TAB PO SCH ×2 (08:05→20:30)
[2020-10-05] MEDS: Thiamine 100 MG TAB PO SCH (08:05)
[2020-10-05] MEDS: Aspirin Chewable 81 MG TAB PER TUBE SCH (08:05)
[2020-10-05] MEDS: Cholecalciferol (Vitamin D3) 400 UNITS TAB PO SCH (08:05)
[2020-10-05] MEDS: Pantoprazole 40 MG GRANULES PACKET PER TUBE SCH (08:05)
[2020-10-05] MEDS: Enoxaparin Sodium 40 MG/0.4 ML SYRINGE SC SCH ×2 (08:05→20:30)
[2020-10-05] MEDS ORDERED: Furosemide 40 MG/4 ML VIAL ONE (08:07)
[2020-10-05 08:10] LABS: Actual Bicarbonate (HCO3a) 29.4 mEq/L (22-28); Base Excess (BEa) 4.3 mEq/L (-2.0 to +3.0); CO2 Tension 46.1 mmHg (35.0-45.0); Calcium, Ionized (arterial) 1.11 mmol/L (1.12-1.30); Carboxyhemoglobin (COHb) 0.9 gm% (0.0-3.0); O2 Tension (PaO2), arterial 63.4 mmHg (80.0-100.0); pH, Arterial 7.42 (7.35-7.45)
[2020-10-05] MEDS: Furosemide 40 MG/4 ML VIAL SLOW IVP SCH ×2 (08:11→11:42)
[2020-10-05 08:12] LABS: Puncture Site RRA
[2020-10-05 08:13] LABS: ALV-art Gradient 164.175 mmHg (0-20)
[2020-10-05 12:55] LABS: Potassium 4.1 mmol/L (3.5-5.1)
[2020-10-05] MEDS: Atorvastatin Calcium 40 MG TAB PO SCH (20:30)
[2020-10-06] MEDS: SODIUM CHLORIDE 0.45% IVP SCH ×2 (01:03→20:47)
[2020-10-06] MEDS: METHYLPREDNISOLONE SODIUM SUCC IVP SCH ×2 (01:03→20:47)
[2020-10-06] MEDS: hydrALAZINE 20 MG/ML VIAL SLOW IVP PRN (01:47)
[2020-10-06] MEDS ORDERED: Acetaminophen 650 MG/20.3 ML UDCUP PO PRN (03:59)
[2020-10-06] MEDS: Acetaminophen 650 MG/20.3 ML UDCUP PER TUBE PRN ×2 (04:04→13:58)
[2020-10-06 04:28] LABS: Anion Gap 15 mmol/L (10-20); BUN (Urea Nitrogen) 18 mg/dL (8.9-20.6); Calc. Creatinine Clearance 155 mL/min (70-130); Calcium 8.3 mg/dL (7.8-10.44); Carbon Dioxide 27 mmol/L (22-29); Chloride 104 mmol/L (98-107); Glucose 235 mg/dL (70-105); Potassium 3.5 mmol/L (3.5-5.1); Sodium 142 mmol/L (136-145)
[2020-10-06 05:02] LABS: Hemoglobin 12.9 g/dL (14.0-18.0); MDiff Complete? YES; Mean Corpuscular HGB CONC 31.8 g/dL (32.0-36.0); Mean Corpuscular Hemoglobin 29.2 pg (27.0-31.0); Mean Corpuscular Volume 91.7 fL (78.0-98.0); Mean Platelet Volume 10.2 fL (7.4-10.4); Platelet Count 326 thou/uL (130-400); RBC Distribution Width 12.8 % (11.5-14.5); Red Blood Cell (RBC) Count 4.42 mill/uL (4.70-6.10)
[2020-10-06 05:03] LABS: Band 2 % (5-11); Lymphocytes 2 % (21-51); Monocytes 6 % (0-10); Neutrophil 90 % (42-75)
[2020-10-06 08:22] LABS: Base Excess (BEa) 3.1 mEq/L (-2.0 to +3.0); CO2 Tension 30.2 mmHg (35.0-45.0); Calcium, Ionized (arterial) 1.15 mmol/L (1.12-1.30); Carboxyhemoglobin (COHb) 0.5 gm% (0.0-3.0); Hemoglobin (Hb) 13.3 g/dL (14.0-18.0); O2 Tension (PaO2), arterial 62.5 mmHg (80.0-100.0); Potassium - ABG Lab 3.72 mmol/L (3.70-5.30); pH, Arterial 7.54 (7.35-7.45)
[2020-10-06] MEDS: Potassium Chloride 20 MEQ in Premix Bag 1 BAG IVPB SCH ×2 (08:29→16:08)
[2020-10-06] MEDS ORDERED: VANCOMYCIN IVPB PRN (08:30)
[2020-10-06] MEDS: Enoxaparin Sodium 40 MG/0.4 ML SYRINGE SC SCH ×2 (08:30→20:45)
[2020-10-06] MEDS: Magnesium Oxide 400 MG TAB PO SCH (08:31)
[2020-10-06] MEDS: Cholecalciferol (Vitamin D3) 400 UNITS TAB PO SCH (08:31)
[2020-10-06] MEDS: Ascorbic Acid 500 mg Chewable Tablet PO SCH (08:31)
[2020-10-06] MEDS: Thiamine 100 MG TAB PO SCH (08:31)
[2020-10-06] MEDS: Zinc Sulfate 220 MG CAP PO SCH (08:31)
[2020-10-06] MEDS: Aspirin Chewable 81 MG TAB PER TUBE SCH (08:31)
[2020-10-06] MEDS: Colchicine 0.6 MG TAB PO SCH ×2 (08:31→20:46)
[2020-10-06] MEDS: Furosemide 40 MG/4 ML VIAL SLOW IVP SCH (08:32)
[2020-10-06] MEDS: Multivitamin W/ Minerals 1 TAB PO SCH (08:32)
[2020-10-06] MEDS: Pantoprazole 40 MG GRANULES PACKET PER TUBE SCH (08:32)
[2020-10-06] MEDS: Folic Acid 1 MG TAB PO SCH (08:32)
[2020-10-06] MEDS: Micafungin 100 MG in Sodium Chloride 0.9% 100 ML IVPB SCH (09:51)
[2020-10-06] MEDS: Cefepime 1 GM in Sodium Chloride 0.9% 100 ML IVPB SCH ×2 (09:54→20:46)
[2020-10-06] MEDS: Vancomycin 1 GM in Premix Bag 1 BAG IVPB SCH ×2 (09:55→18:42)
[2020-10-06] MEDS ORDERED: Propofol BOLUS 1,000 MG/100 ML VIAL IV PRN (12:30)
[2020-10-06] MEDS: Propofol 1,000 MG/100 ML VIAL IV PRN ×2 (12:50→20:47)
[2020-10-06] MEDS ORDERED: Dextrose 50% Abboject 50 ML SYRINGE IVP PRN (14:30)
[2020-10-06] MEDS ORDERED: Dextrose 5% in Water 1,000 ML IV PRN (14:30)
[2020-10-06] MEDS: HumaLOG 300 UNITS/3 ML VIAL SC PRN ×3 (14:39→21:45)
[2020-10-06 16:20] LABS: Puncture Site Arterial Line
[2020-10-06] MEDS: Vecuronium 10 MG VIAL IVP PRN ×2 (17:16→18:10)
[2020-10-06] MEDS: Atorvastatin Calcium 40 MG TAB PO SCH (20:46)
[2020-10-07] MEDS: Propofol 1,000 MG/100 ML VIAL IV PRN ×2 (02:10→09:08)
[2020-10-07] MEDS: Acetaminophen 650 MG/20.3 ML UDCUP PER TUBE PRN (02:10)
[2020-10-07] MEDS: Vancomycin 1 GM in Premix Bag 1 BAG IVPB SCH ×2 (02:11→09:09)
[2020-10-07 06:50] LABS: ALT (SGPT) 146 U/L (8-55); AST (SGOT) 43 U/L (5-34); Albumin 2.9 g/dL (3.5-5.0); Alkaline Phosphatase 162 U/L (40-110); Anion Gap 15 mmol/L (10-20); BUN (Urea Nitrogen) 18 mg/dL (8.9-20.6); Bilirubin, Total 0.6 mg/dL (0.2-1.2); CRP (Inflammatory) 6.29 mg/dL (= or < 0.5); Calc. Creatinine Clearance 163 mL/min (70-130); Calcium 8.1 mg/dL (7.8-10.44); Carbon Dioxide 21 mmol/L (22-29); Chloride 106 mmol/L (98-107); Globulin 3.1 g/dL (2.4-3.5); Glucose 281 mg/dL (70-105); Potassium 3.3 mmol/L (3.5-5.1); Sodium 139 mmol/L (136-145)
[2020-10-07 06:55] LABS: Band 7 % (5-11); Hemoglobin 12.2 g/dL (14.0-18.0); Lymphocytes 1 % (21-51); MDiff Complete? YES; Mean Corpuscular HGB CONC 32.1 g/dL (32.0-36.0); Mean Corpuscular Hemoglobin 29.3 pg (27.0-31.0); Mean Corpuscular Volume 91.4 fL (78.0-98.0); Mean Platelet Volume 10.7 fL (7.4-10.4); Monocytes 6 % (0-10); Neutrophil 86 % (42-75); Platelet Count 261 thou/uL (130-400); Platelet Morphology Comment Appears Adequate; Red Blood Cell (RBC) Count 4.17 mill/uL (4.70-6.10)
[2020-10-07 07:48] LABS: Actual Bicarbonate (HCO3a) 22.3 mEq/L (22-28); Calcium, Ionized (arterial) 1.15 mmol/L (1.12-1.30); Carboxyhemoglobin (COHb) 0.9 gm% (0.0-3.0); Hemoglobin (Hb) 13.4 g/dL (14.0-18.0); Potassium - ABG Lab 3.39 mmol/L (3.70-5.30); pH, Arterial 7.49 (7.35-7.45)
[2020-10-07 07:50] LABS: Puncture Site LRA
[2020-10-07] MEDS: Micafungin 100 MG in Sodium Chloride 0.9% 100 ML IVPB SCH (09:08)
[2020-10-07] MEDS: Potassium Chloride 20 MEQ in Premix Bag 1 BAG IVPB SCH ×2 (09:09→10:56)
[2020-10-07] MEDS: Enoxaparin Sodium 40 MG/0.4 ML SYRINGE SC SCH ×2 (09:09→21:54)
[2020-10-07] MEDS: Colchicine 0.6 MG TAB PO SCH ×2 (09:10→21:55)
[2020-10-07] MEDS: Cholecalciferol (Vitamin D3) 400 UNITS TAB PO SCH (09:10)
[2020-10-07] MEDS: Magnesium Oxide 400 MG TAB PO SCH (09:10)
[2020-10-07] MEDS: Thiamine 100 MG TAB PO SCH (09:10)
[2020-10-07] MEDS: Ascorbic Acid 500 mg Chewable Tablet PO SCH (09:10)
[2020-10-07] MEDS: Aspirin Chewable 81 MG TAB PER TUBE SCH (09:10)
[2020-10-07] MEDS: Zinc Sulfate 220 MG CAP PO SCH (09:10)
[2020-10-07] MEDS: Folic Acid 1 MG TAB PO SCH (09:11)
[2020-10-07] MEDS: Multivitamin W/ Minerals 1 TAB PO SCH (09:11)
[2020-10-07] MEDS: Pantoprazole 40 MG GRANULES PACKET PER TUBE SCH (09:11)
[2020-10-07] MEDS: Cefepime 1 GM in Sodium Chloride 0.9% 100 ML IVPB SCH ×2 (09:12→21:55)
[2020-10-07] MEDS: NPH, Human Insulin Isophane 300 UNIT/3 ML VIAL SC SCH ×2 (09:20→21:55)
[2020-10-07 09:21] LABS: Vancomycin, Trough 10.6 ug/mL
[2020-10-07] MEDS: HumaLOG 300 UNITS/3 ML VIAL SC PRN ×2 (09:57→16:43)
[2020-10-07] MEDS ORDERED: Vancomycin 1.5 GRAM/300 ML BAG 1.5 GM in Premix Bag 1 BAG IVPB SCH (14:00)
[2020-10-07] MEDS ORDERED: Vancomycin 1 GM in Premix Bag 1 BAG IVPB SCH (16:00)
[2020-10-07] MEDS: Vancomycin 1.5 GRAM/300 ML BAG 1.5 GM in Premix Bag 1 BAG IVPB SCH (17:55)
[2020-10-07] MEDS: Atorvastatin Calcium 40 MG TAB PO SCH (21:55)
[2020-10-08] MEDS: Vancomycin 1.5 GRAM/300 ML BAG 1.5 GM in Premix Bag 1 BAG IVPB SCH ×3 (02:47→17:05)
[2020-10-08 05:14] LABS: Anion Gap 16 mmol/L (10-20); BUN (Urea Nitrogen) 18 mg/dL (8.9-20.6); Calc. Creatinine Clearance 160 mL/min (70-130); Calcium 7.9 mg/dL (7.8-10.44); Carbon Dioxide 19 mmol/L (22-29); Chloride 109 mmol/L (98-107); Glucose 224 mg/dL (70-105); Potassium 3.5 mmol/L (3.5-5.1); Sodium 140 mmol/L (136-145)
[2020-10-08] MEDS: METHYLPREDNISOLONE SODIUM SUCC IVP SCH (05:15)
[2020-10-08] MEDS: SODIUM CHLORIDE 0.45% IVP SCH (05:15)
[2020-10-08] MEDS: HumaLOG 300 UNITS/3 ML VIAL SC PRN (05:21)
[2020-10-08 05:24] LABS: Hemoglobin 12.2 g/dL (14.0-18.0); Lymphocytes 3 % (21-51); MDiff Complete? YES; Mean Corpuscular HGB CONC 32.9 g/dL (32.0-36.0); Mean Corpuscular Volume 91.1 fL (78.0-98.0); Monocytes 2 % (0-10); Neutrophil 95 % (42-75); Platelet Count 239 thou/uL (130-400); Platelet Morphology Comment Appears Adequate; Red Blood Cell (RBC) Count 4.06 mill/uL (4.70-6.10); White Blood Cell (WBC) Count 28.5 thou/uL (4.8-10.8)
[2020-10-08] MEDS: Propofol 1,000 MG/100 ML VIAL IV PRN (06:37)
[2020-10-08] MEDS ORDERED: Potassium Chloride 40 MEQ in Sodium Chloride 0.9% 250 ML 250 ML IVPB SCH (07:00)
[2020-10-08] MEDS: Ascorbic Acid 500 mg Chewable Tablet PO SCH (09:48)
[2020-10-08] MEDS: Aspirin Chewable 81 MG TAB PER TUBE SCH (09:48)
[2020-10-08] MEDS: Cholecalciferol (Vitamin D3) 400 UNITS TAB PO SCH (09:49)
[2020-10-08] MEDS: Cefepime 1 GM in Sodium Chloride 0.9% 100 ML IVPB SCH ×2 (09:49→21:56)
[2020-10-08] MEDS: Enoxaparin Sodium 40 MG/0.4 ML SYRINGE SC SCH ×2 (09:49→21:56)
[2020-10-08] MEDS: Colchicine 0.6 MG TAB PO SCH ×2 (09:49→21:56)
[2020-10-08] MEDS: Multivitamin W/ Minerals 1 TAB PO SCH (09:50)
[2020-10-08] MEDS: Folic Acid 1 MG TAB PO SCH (09:50)
[2020-10-08] MEDS: Micafungin 100 MG in Sodium Chloride 0.9% 100 ML IVPB SCH (09:50)
[2020-10-08] MEDS: NPH, Human Insulin Isophane 300 UNIT/3 ML VIAL SC SCH ×2 (09:50→23:20)
[2020-10-08] MEDS: Magnesium Oxide 400 MG TAB PO SCH (09:50)
[2020-10-08] MEDS: Pantoprazole 40 MG GRANULES PACKET PER TUBE SCH (09:51)
[2020-10-08] MEDS: Zinc Sulfate 220 MG CAP PO SCH (09:51)
[2020-10-08] MEDS: Thiamine 100 MG TAB PO SCH (09:52)
[2020-10-08 17:23] LABS: Vancomycin, Trough 21.4 ug/mL
[2020-10-08] MEDS: Atorvastatin Calcium 40 MG TAB PO SCH (21:56)
[2020-10-09] MEDS: Vancomycin 1.5 GRAM/300 ML BAG 1.5 GM in Premix Bag 1 BAG IVPB SCH ×3 (02:53→17:09)
[2020-10-09] MEDS: METHYLPREDNISOLONE SODIUM SUCC IVP SCH (04:07)
[2020-10-09] MEDS: SODIUM CHLORIDE 0.45% IVP SCH (04:07)
[2020-10-09 04:59] LABS: Hemoglobin 13.4 g/dL (14.0-18.0); Lymphocytes 5 % (21-51); MDiff Complete? YES; Mean Corpuscular HGB CONC 31.8 g/dL (32.0-36.0); Mean Corpuscular Hemoglobin 28.6 pg (27.0-31.0); Mean Corpuscular Volume 89.9 fL (78.0-98.0); Mean Platelet Volume 9.8 fL (7.4-10.4); Monocytes 3 % (0-10); Neutrophil 92 % (42-75); Platelet Count 255 thou/uL (130-400); Platelet Morphology Comment Appears Adequate; RBC Distribution Width 13.2 % (11.5-14.5); Red Blood Cell (RBC) Count 4.68 mill/uL (4.70-6.10); White Blood Cell (WBC) Count 25.9 thou/uL (4.8-10.8)
[2020-10-09] MEDS: Enoxaparin Sodium 40 MG/0.4 ML SYRINGE SC SCH ×2 (08:38→20:43)
[2020-10-09] MEDS: Zinc Sulfate 220 MG CAP PO SCH (08:39)
[2020-10-09] MEDS: Cholecalciferol (Vitamin D3) 400 UNITS TAB PO SCH (08:39)
[2020-10-09] MEDS: Colchicine 0.6 MG TAB PO SCH ×2 (08:39→20:43)
[2020-10-09] MEDS: Ascorbic Acid 500 mg Chewable Tablet PO SCH (08:39)
[2020-10-09] MEDS: Thiamine 100 MG TAB PO SCH (08:39)
[2020-10-09] MEDS: Multivitamin W/ Minerals 1 TAB PO SCH (08:39)
[2020-10-09] MEDS: Magnesium Oxide 400 MG TAB PO SCH (08:39)
[2020-10-09] MEDS: Aspirin Chewable 81 MG TAB PER TUBE SCH (08:39)
[2020-10-09] MEDS: Folic Acid 1 MG TAB PO SCH (08:39)
[2020-10-09] MEDS: Pantoprazole 40 MG GRANULES PACKET PER TUBE SCH (08:39)
[2020-10-09] MEDS: Cefepime 1 GM in Sodium Chloride 0.9% 100 ML IVPB SCH ×2 (08:40→20:43)
[2020-10-09] MEDS: Micafungin 100 MG in Sodium Chloride 0.9% 100 ML IVPB SCH (08:40)
[2020-10-09] MEDS: NPH, Human Insulin Isophane 300 UNIT/3 ML VIAL SC SCH ×2 (08:43→20:44)
[2020-10-09] MEDS: HumaLOG 300 UNITS/3 ML VIAL SC PRN ×2 (17:09→21:07)
[2020-10-09 17:31] LABS: Vancomycin, Trough 24.8 ug/mL
[2020-10-09] MEDS ORDERED: Vancomycin 1.5 GRAM/300 ML BAG 1.5 GM in Premix Bag 1 BAG IVPB SCH (18:00)
[2020-10-09] MEDS: Atorvastatin Calcium 40 MG TAB PO SCH (20:43)
[2020-10-10] MEDS: HumaLOG 300 UNITS/3 ML VIAL SC PRN ×2 (05:21→17:27)
[2020-10-10] MEDS: Aspirin Chewable 81 MG TAB PER TUBE SCH (09:03)
[2020-10-10] MEDS: Ascorbic Acid 500 mg Chewable Tablet PO SCH (09:03)
[2020-10-10] MEDS: Magnesium Oxide 400 MG TAB PO SCH (09:04)
[2020-10-10] MEDS: Cefepime 1 GM in Sodium Chloride 0.9% 100 ML IVPB SCH ×2 (09:04→20:29)
[2020-10-10] MEDS: Thiamine 100 MG TAB PO SCH (09:04)
[2020-10-10] MEDS: Folic Acid 1 MG TAB PO SCH (09:04)
[2020-10-10] MEDS: Colchicine 0.6 MG TAB PO SCH (09:04)
[2020-10-10] MEDS: Pantoprazole 40 MG GRANULES PACKET PER TUBE SCH (09:04)
[2020-10-10] MEDS: Multivitamin W/ Minerals 1 TAB PO SCH (09:05)
[2020-10-10] MEDS: Zinc Sulfate 220 MG CAP PO SCH (09:05)
[2020-10-10] MEDS: Enoxaparin Sodium 40 MG/0.4 ML SYRINGE SC SCH ×2 (09:05→20:29)
[2020-10-10] MEDS: Micafungin 100 MG in Sodium Chloride 0.9% 100 ML IVPB SCH (09:05)
[2020-10-10] MEDS: Cholecalciferol (Vitamin D3) 400 UNITS TAB PO SCH (09:05)
[2020-10-10] MEDS: NPH, Human Insulin Isophane 300 UNIT/3 ML VIAL SC SCH ×2 (09:06→20:29)
[2020-10-10 10:16] LABS: Vancomycin, Trough 7.4 ug/mL
[2020-10-10] MEDS: methylPREDNISolone Sod Succ 40 MG VIAL IVP SCH ×3 (11:37→23:52)
[2020-10-10] MEDS: Acetaminophen 650 MG/20.3 ML UDCUP PER TUBE PRN (12:55)
[2020-10-10] MEDS: Atorvastatin Calcium 40 MG TAB PO SCH (20:29)
[2020-10-11] MEDS: methylPREDNISolone Sod Succ 40 MG VIAL IVP SCH ×3 (05:46→17:22)
[2020-10-11] MEDS: NPH, Human Insulin Isophane 300 UNIT/3 ML VIAL SC SCH ×2 (08:38→21:30)
[2020-10-11] MEDS: Cefepime 1 GM in Sodium Chloride 0.9% 100 ML IVPB SCH ×2 (08:39→21:15)
[2020-10-11] MEDS: Magnesium Oxide 400 MG TAB PO SCH (08:40)
[2020-10-11] MEDS: Enoxaparin Sodium 40 MG/0.4 ML SYRINGE SC SCH ×2 (08:40→21:15)
[2020-10-11] MEDS: Aspirin Chewable 81 MG TAB PER TUBE SCH (08:40)
[2020-10-11] MEDS: Folic Acid 1 MG TAB PO SCH (08:40)
[2020-10-11] MEDS: Multivitamin W/ Minerals 1 TAB PO SCH (08:40)
[2020-10-11] MEDS: Zinc Sulfate 220 MG CAP PO SCH (08:40)
[2020-10-11] MEDS: Ascorbic Acid 500 mg Chewable Tablet PO SCH (08:40)
[2020-10-11] MEDS: Cholecalciferol (Vitamin D3) 400 UNITS TAB PO SCH (08:40)
[2020-10-11] MEDS: Thiamine 100 MG TAB PO SCH (08:41)
[2020-10-11] MEDS: Pantoprazole 40 MG GRANULES PACKET PER TUBE SCH (08:41)
[2020-10-11] MEDS: Micafungin 100 MG in Sodium Chloride 0.9% 100 ML IVPB SCH (09:30)
[2020-10-11] MEDS: HumaLOG 300 UNITS/3 ML VIAL SC PRN ×3 (11:53→21:31)
[2020-10-11] MEDS: Atorvastatin Calcium 40 MG TAB PO SCH (21:20)
[2020-10-12] MEDS: methylPREDNISolone Sod Succ 40 MG VIAL IVP SCH ×4 (00:11→19:21)
[2020-10-12] MEDS: HumaLOG 300 UNITS/3 ML VIAL SC PRN ×4 (05:51→21:48)
[2020-10-12] MEDS: NPH, Human Insulin Isophane 300 UNIT/3 ML VIAL SC SCH ×2 (08:38→21:48)
[2020-10-12] MEDS: Cefepime 1 GM in Sodium Chloride 0.9% 100 ML IVPB SCH ×2 (08:39→20:55)
[2020-10-12] MEDS: Ascorbic Acid 500 mg Chewable Tablet PO SCH (08:42)
[2020-10-12] MEDS: Magnesium Oxide 400 MG TAB PO SCH (08:42)
[2020-10-12] MEDS: Aspirin Chewable 81 MG TAB PER TUBE SCH (08:42)
[2020-10-12] MEDS: Multivitamin W/ Minerals 1 TAB PO SCH (08:42)
[2020-10-12] MEDS: Folic Acid 1 MG TAB PO SCH (08:42)
[2020-10-12] MEDS: Pantoprazole 40 MG GRANULES PACKET PER TUBE SCH (08:42)
[2020-10-12] MEDS: Enoxaparin Sodium 40 MG/0.4 ML SYRINGE SC SCH ×2 (08:42→20:55)
[2020-10-12] MEDS: Thiamine 100 MG TAB PO SCH (08:42)
[2020-10-12] MEDS: Cholecalciferol (Vitamin D3) 400 UNITS TAB PO SCH (08:42)
[2020-10-12] MEDS: Zinc Sulfate 220 MG CAP PO SCH (08:42)
[2020-10-12] MEDS: Micafungin 100 MG in Sodium Chloride 0.9% 100 ML IVPB SCH (08:43)
[2020-10-12] MEDS: Atorvastatin Calcium 40 MG TAB PO SCH (20:55)
[2020-10-12] MEDS ORDERED: HumaLOG 300 UNITS/3 ML VIAL SC PRN (21:33)
[2020-10-13] MEDS: methylPREDNISolone Sod Succ 40 MG VIAL IVP SCH ×2 (00:34→06:14)
[2020-10-13] MEDS: HumaLOG 300 UNITS/3 ML VIAL SC PRN ×3 (06:18→17:44)
[2020-10-13] MEDS: Enoxaparin Sodium 40 MG/0.4 ML SYRINGE SC SCH (07:33)
[2020-10-13] MEDS: Cefepime 1 GM in Sodium Chloride 0.9% 100 ML IVPB SCH (07:33)
[2020-10-13] MEDS: Zinc Sulfate 220 MG CAP PO SCH (07:34)
[2020-10-13] MEDS: Cholecalciferol (Vitamin D3) 400 UNITS TAB PO SCH (07:34)
[2020-10-13] MEDS: Pantoprazole 40 MG GRANULES PACKET PER TUBE SCH (07:35)
[2020-10-13] MEDS: Multivitamin W/ Minerals 1 TAB PO SCH (07:35)
[2020-10-13] MEDS: Thiamine 100 MG TAB PO SCH (07:35)
[2020-10-13] MEDS: Aspirin Chewable 81 MG TAB PER TUBE SCH (07:35)
[2020-10-13] MEDS: Magnesium Oxide 400 MG TAB PO SCH (07:36)
[2020-10-13] MEDS: Folic Acid 1 MG TAB PO SCH (07:36)
[2020-10-13] MEDS: Ascorbic Acid 500 mg Chewable Tablet PO SCH (07:36)
[2020-10-13] MEDS: NPH, Human Insulin Isophane 300 UNIT/3 ML VIAL SC SCH (07:59)
[2020-10-13] MEDS ORDERED: predniSONE 20 MG TAB PO SCH (09:00)
[2020-10-13] MEDS: Micafungin 100 MG in Sodium Chloride 0.9% 100 ML IVPB SCH (10:41)
[2020-10-13 14:39] VITALS: BMI 24.7
[2020-10-13 17:24] VITALS: TEMP 97.5
[2020-10-13 20:59] VITALS: BP 130/72
[2020-10-18] MEDS ORDERED: predniSONE 20 MG TAB PO SCH (09:00)
== END 2020-10-13 18:06 | disposition left against medical advice (07) | DRG 207 ==
LOC: ERS 12:46 → CCU 17:52 → 2SW 10-10 12:35
PROVIDERS: ADMIT Internal Medicine; ATTEND Family Medicine
PROC: 8E0ZXY6 Isolation (ICD-10-PCS; 2020-09-23)
PROC: XW033E5 Introduction of Remdesivir Anti-infective into Peripheral Vein, Percutaneous Approach, New Technology Group 5 (ICD-10-PCS; 2020-09-24)
PROC: 0DH673Z Insertion of Infusion Device into Stomach, Via Natural or Artificial Opening (ICD-10-PCS; principal; 2020-09-25)
PROC: 5A1955Z Respiratory Ventilation, Greater than 96 Consecutive Hours (ICD-10-PCS; 2020-09-25)
PROC: 0BH17EZ Insertion of Endotracheal Airway into Trachea, Via Natural or Artificial Opening (ICD-10-PCS; 2020-09-25)
PROC: 5A12012 Performance of Cardiac Output, Single, Manual (ICD-10-PCS; 2020-09-25)
PROC: 3E033XZ Introduction of Vasopressor into Peripheral Vein, Percutaneous Approach (ICD-10-PCS; 2020-09-25)
DX: U07.1 COVID-19 (principal); J12.82 Pneumonia due to coronavirus disease 2019; G93.6 Cerebral edema; J96.01 Acute respiratory failure with hypoxia; I63.331 Cerebral infarction due to thrombosis of right posterior cerebral artery; I46.9 Cardiac arrest, cause unspecified; D68.69 Other thrombophilia; G93.49 Other encephalopathy; F10.231 Alcohol dependence with withdrawal delirium; R26.81 Unsteadiness on feet; Z53.29 Procedure and treatment not carried out because of patient's decision for other reasons; Z87.01 Personal history of pneumonia (recurrent); R73.9 Hyperglycemia, unspecified; D72.829 Elevated white blood cell count, unspecified; R03.0 Elevated blood-pressure reading, without diagnosis of hypertension
CPT/HCPCS: 0240U; 36415; 36416; 36600; 70450; 70496; 70498; 70553; 71045; 74018; 80048; 80053; 80061; 80076; 80202; 80306; 81001; 81003; 81015; 82248; 82553; 82728; 82805; 83605; 83690; 83735; 83880; 84145; 84295; 84484; 85025; 85379; 85610; 85730; 86140; 86780; 87040; 87086; 92950; 93005; 94002; 94003; 94760; 96365; 96367; 96375; A9579; C9113; J0171; J0360; J0456; J0692; J0696; J1100; J1650; J1815; J1940; J2060; J2248; J2270; J2704; J2920; J2930; J3010; J3370; J3411; J3475; J3480; J3490; J7042; J7050; J7512; Q9967